=== PATIENT | female | born 1985 | race American Indian/Alaskan Native ===

== ENCOUNTER 2018-11-17 10:06 | Emergency (ER) | payer SELFPAY ==
[2018-11-17] MEDS ORDERED: TORADOL IM ONE (11:30)
[2018-11-17] MEDS ORDERED: DELTASONE PO ONE (11:30)
--- NOTE | 2018-11-17 12:42 | Emergency Department Report ---
HPI - General Chief Complaint: Extremity Problem,Nontraumatic Time Seen by Provider: 11/17/18 11:03 - HPI HPI: Patient is a 33-year-old female with no prior medical history who presents to the ED complaining of left shoulder pain for the past 3 weeks. Patient states she was subsequently this is the floor for some time. Patient states that she does not recall injuring the shoulder. She denies any trauma, injuries or falls. Patient states that pain is worse at the shoulder. She states that yesterday she had her son try to stretch it and thinks estrogen so far. Patient also states that she has been using BenGay and icy hot the shoulder joint with minor relief. ED Past Medical Hx - Past Medical History Previous Medical History?: No - Surgical History Past Surgical History?: No - Social History Smoking Status: Never Smoker Substance Use Type: None - Medications Home Medications: Home Medications Medication Instructions Recorded Confirmed Last Taken Type Cyclobenzaprine [Flexeril] 10 mg PO QHS PRN #30 tablet 11/17/[address] [Mechelle Grimaldo] 75 mg PO BID #20 tablet 11/17/18 Unknown Rx ED Review of Systems ROS: Stated complaint: LFT SHOULDER PAIN/LFT NECK PAIN Other details as noted in HPI Comment: All other systems reviewed and negative Physical Exam - Physical Exam Vital Signs: Vital Signs 11/17/18 10:16 Temperature 97.8 F Pulse Rate 84 Respiratory 16 Rate Blood Pressure 142/59 [Left] O2 Sat by Pulse 96 Oximetry Physical Exam: GENERAL: Alert and oriented x3, no apparent distress, Normal Gait, atraumatic. HEAD: Head is normocephalic and a-traumatic. NECK: Supple. Non edematous, No lymphadenopathy or thyromegaly. No C-spine tenderness, full range of motion BACK: Full range of motion, no spinal tenderness. EXTREMITIES/MUSCULOSKELETAL: No cyanosis, clubbing, rash, lesions or edema. Full ROM bilaterally. UE Pulses 2+ bilaterally. UE 5+ strength bilaterally, pitting tenderness to palpation of the rhomboid muscle of the left. There is no shoulder deformity, swelling or any signs of injury. Patient was able to mobilize arm and lift up her left arm up. NEUROLOGIC: The patient is cooperative with no focal neurologic deficits. SKIN: Warm and dry, No lesions, No ulceration or induration present. ED Course Vital Signs 11/17/18 10:16 Temperature 97.8 F Pulse Rate 84 Respiratory 16 Rate Blood Pressure 142/59 [Left] O2 Sat by Pulse 96 Oximetry ED Medical Decision Making - Medical Decision Making 33-year-old female presents with a possible shoulder strain/tendinitis. Discussed with the patient she will need follow-up with an orthopedic doctor Adams. Referral given. Patient was in no acute distress. Patient was able to mobilize left arm and shoulder appropriately with no problems. At this time patient will be discharged home with pain relief muscle relaxer and follow-up to see Dr. Lamas. Patient understands this instructions and will follow up. Vital signs are normal she is in no acute respiratory distress Critical care attestation.: If time is entered above; I have spent that time in minutes in the direct care of this critically ill patient, excluding procedure time. ED Disposition Clinical Impression: Shoulder pain, left, Arthralgia Disposition: TO HOME OR SELFCARE Is pt being admited?: No Does the pt Need Aspirin: No Condition: Stable Instructions: Rotator Cuff Tendinitis (ED), Shoulder Sprain (ED), Arthralgia (ED) Additional Instructions: Make sure to follow up with the primary care physician as discussed. Take all your medications as you've been prescribed. If you have any worsening symptoms or develop new symptoms please return to ED immediately. Prescriptions: Cyclobenzaprine [Flexeril] 10 mg PO QHS PRN #30 tablet PRN Reason: Muscle Spasm Diclofenac Dr [Voltaren Dr] 75 mg PO BID #20 tablet Referrals: [facility] [Other] - 3-5 Days KEITH LAMAS MD [Staff Physician] - 3-5 Days Forms: Accompanied Note, Work/School Release Form(ED) Time of Disposition: 12:42
[2018-11-17 13:41] VITALS: BP 140/89
== END 2018-11-17 13:35 | disposition home or self-care (01) ==
LOC: ED 10:06
DX: M25.512 Pain in left shoulder (principal)
CPT/HCPCS: 96372; 99282; J1885; J7512